=== PATIENT | male | born 1975 | race Hispanic/Latino ===

== ENCOUNTER 2019-11-16 10:40 | Outpatient (CLI) | payer OTHER ==
--- NOTE | 2019-11-16 14:29 | MRI ---
Exam: Brain MRI with and without contrast HISTORY: Pituitary adenoma COMPARISON: 02/21/2015, 03/10/2014 FINDINGS: Hemorrhage: No parenchymal hemorrhage or extra-axial hematoma Calvarium: Appropriate T1 marrow signal intensity Midline brain parenchyma: Unremarkable Cerebrum:No parenchymal mass, mass effect or midline shift. Brain volume is age-appropriate. Cortical mann-white matter differentiation is preserved. No significant T2 or FLAIR white matter hyperintensities. Ventricles: No evidence of hydrocephalus. Sinuses and mastoid air cells: Adequate aeration. No opacification of either sphenoid sinus. Diffusion: Central arterial flow is maintained. Absent restricted diffusion. Postcontrast images:No pathologic enhancement of the brain parenchyma Pituitary MRI: Redemonstration of a partially empty sella. Stable asymmetric soft tissue signal inten sity along the right floor of the sella. Findings may represent residual scar tissue versus pituitary gland. Pituitary stalk is midline. No mass effect upon the optic chiasm and prechiasmatic o ptic nerves. Flow voids involving both cavernous carotid arteries are maintained. Symmetric signal intensities of the Meckel's cave. IMPRESSION: 1. Partially empty sella, similar to the previous examination and likely representing postsurgical ch nadia. No MR evidence of a recurrent pituitary mass.
== END 2019-11-16 10:41 | disposition home or self-care (01) ==
LOC: BICMRI 10:40
PROVIDERS: ATTEND Family Medicine
DX: D35.2 Benign neoplasm of pituitary gland (principal)
CPT/HCPCS: 70553

== ENCOUNTER 2023-03-10 09:59 | Outpatient (CLI) | payer BC ==
[2023-03-10 11:12] LABS: Bilirubin Neg (Negative); Blood, Urine 25 (Negative); Glucose, Urine (Dipstick) Normal (Negative); Ketone, Urine Negative (Negative); Leukocyte 25 (Negative); Nitrite Negative (Negative); Protein, Urine (Dipstick) 15 mg/dl (Neg-Trace); Urobilinogen Normal mg/dL (Less than 2)
[2023-03-10 11:18] LABS: Clarity Clear (Clear)
[2023-03-10 11:20] LABS: Bacteria/HPF None Seen HPF (None Seen); RBC/HPF 0-3 HPF (0-3); Squamous Epithelial None Seen HPF (0-3); WBC/HPF None Seen HPF (0-3)
[2023-03-10 11:33] LABS: Hematocrit 46.1 % (38.8-50.0); Hemoglobin 16.5 g/dL (13.5-17.5); Mean Corpuscular HGB CONC 35.8 g/dL (32.0-36.0); Mean Corpuscular Hemoglobin 32.7 pg (27.0-33.0); Mean Corpuscular Volume 91.5 fl (81.2-95.1); Mean Platelet Volume 10.5 fl (7.4-10.4); Platelet Count 193 10x3/uL (150-450); RBC Distribution Width 12.1 % (11.5-14.5); Red Blood Cell (RBC) Count 5.04 10x6/uL (4.32-5.72); White Blood Cell (WBC) Count 6.5 10x3/uL (3.5-10.5)
[2023-03-10 11:44] LABS: PTT 27.6 sec (22.0-33.0); Prothrombin Time 10.3 sec (9.5-12.1)
[2023-03-10 11:47] LABS: ALT (SGPT) 23 U/L (8-55); AST (SGOT) 19 U/L (5-34); Albumin 4.4 g/dL (3.5-5.0); Alkaline Phosphatase 59 U/L (40-110); Anion Gap 15 mmol/L (10-20); BUN (Urea Nitrogen) 14 mg/dL (8.9-20.6); Bilirubin, Total 1.3 mg/dL (0.2-1.2); Calc. Creatinine Clearance 0 mL/min (70-130); Calcium 9.2 mg/dL (7.8-10.44); Carbon Dioxide 21 mmol/L (22-29); Chloride 108 mmol/L (98-107); Estimated GFR 109; Globulin 2.9 g/dL (2.4-3.5); Glucose 100 mg/dL (70-105); Protein, Total 7.3 g/dL (6.0-8.3); Sodium 140 mmol/L (136-145)
== END 2023-03-10 10:00 | disposition home or self-care (01) ==
LOC: LABBT 09:59
PROVIDERS: ATTEND Urology
DX: Z01.818 Encounter for other preprocedural examination (principal); K80.20 Calculus of gallbladder without cholecystitis without obstruction
CPT/HCPCS: 71046; 80053; 81001; 85027; 85610; 85730; 87086; 93005; 93010

== ENCOUNTER 2023-03-10 10:00 | Inpatient (IN) | payer BC ==
[2023-03-10 10:58] VITALS: BMI 38.6
[2023-03-20] MEDS ORDERED: Midazolam HCl 2 mg/2 ml Vial ONE (07:10)
[2023-03-20] MEDS ORDERED: fentaNYL 50 mcg/mL 1 mL Vial ONE (07:10)
[2023-03-20] MEDS ORDERED: NEOSTIGMINE 3 MG/3 ML SYR 3 MG/3 ML SYRINGE ONE (07:22)
[2023-03-20] MEDS ORDERED: Glycopyrrolate 0.2 MG/ML 5 ML SYRINGE ONE (07:22)
[2023-03-20] MEDS ORDERED: Rocuronium Bromide 10 MG/ML (10ML VIAL) ONE (07:22)
[2023-03-20] MEDS ORDERED: Dexamethasone 20 MG/5 ML VIAL ONE (07:22)
[2023-03-20] MEDS ORDERED: PROPOFOL 200 MG/20 ML VIAL ONE (07:22)
[2023-03-20] MEDS ORDERED: Ondansetron PF 4 MG/2 ML Vial ONE (07:22)
[2023-03-20] MEDS ORDERED: Lidocaine 1% PF 5 ML VIAL ONE (07:22)
[2023-03-20] MEDS ORDERED: ePHEDrine Sulfate 50 MG/10 ML VIAL ONE (07:22)
[2023-03-20] MEDS ORDERED: ceFOXitin 1 GM VIAL ONE ×2 (07:27→08:25)
[2023-03-20] MEDS ORDERED: Sodium Chloride 0.9% 100 ML ONE (07:27)
[2023-03-20] MEDS ORDERED: HYDROmorphone 2 MG/ML VIAL ONE (07:27)
[2023-03-20] MEDS ORDERED: EPINEPHrine 1 MG/ML VIAL ONE ×2 (07:46→11:36)
[2023-03-20] MEDS ORDERED: Lidocaine 1% (PF) 30 ML VIAL ONE (07:47)
[2023-03-20] MEDS ORDERED: cefOXitin 2 GM VIAL ONE (09:13)
[2023-03-20] MEDS ORDERED: Ondansetron HCl/PF 4 MG/2 ML Vial IVP PRN (11:12)
[2023-03-20] MEDS ORDERED: Promethazine HCl 25 MG/ML VIAL IM PRN (11:12)
[2023-03-20] MEDS ORDERED: HYDROmorphone 2 MG/ML VIAL SLOW IVP PRN (11:12)
[2023-03-20] MEDS ORDERED: PACU-Morphine 4MG/ML VIAL SLOW IVP PRN (11:12)
[2023-03-20] MEDS ORDERED: Bupivacaine 0.25% HCL 30 ML VIAL ONE (11:36)
[2023-03-20] MEDS ORDERED: Dexmedetomidine 200 MCG/2 ML VIAL ONE (11:37)
[2023-03-20] MEDS ORDERED: Hyoscyamine SL 0.125 MG TAB SL PRN (13:05)
[2023-03-20] MEDS ORDERED: Mag-Al 1200 mg/1200 mg/30 ML UDCUP PO PRN (13:05)
[2023-03-20] MEDS ORDERED: diphenhydrAMINE 25 MG CAP PO PRN (13:05)
[2023-03-20] MEDS ORDERED: hydrALAZINE 20 MG/ML VIAL SLOW IVP PRN (13:05)
[2023-03-20] MEDS ORDERED: Oxybutynin 5 MG TAB PO PRN (13:05)
[2023-03-20] MEDS ORDERED: Sodium Chloride 0.9% 1,000 ML IV SCH (13:05)
[2023-03-20] MEDS ORDERED: oxyCODONE 5 MG TAB PO PRN ×2 (13:05)
[2023-03-20 13:30] LABS: Hematocrit 43.4 % (42.0-52.0); Hemoglobin 15.4 g/dL (14.0-18.0); Mean Corpuscular HGB CONC 35.5 g/dL (32.0-36.0); Mean Corpuscular Hemoglobin 32.8 pg (27.0-31.0); Mean Corpuscular Volume 92.3 fl (78.0-98.0); Mean Platelet Volume 10.1 fL (7.4-10.4); Platelet Count 207 10x3/uL (130-400); RBC Distribution Width 12.4 % (11.5-14.5); White Blood Cell (WBC) Count 19.8 10x3/uL (4.8-10.8)
[2023-03-20 14:18] LABS: Anion Gap 14 mmol/L (10-20); BUN (Urea Nitrogen) 20 mg/dL (8.9-20.6); Calc. Creatinine Clearance 157 mL/min (70-130); Calcium 8.9 mg/dL (7.8-10.44); Carbon Dioxide 22 mmol/L (22-29); Chloride 106 mmol/L (98-107); Estimated GFR 101; Glucose 178 mg/dL (70-105); Potassium 3.2 mmol/L (3.5-5.1); Sodium 139 mmol/L (136-145)
[2023-03-20] MEDS: traMADol HCl 50 MG TAB PO SCH ×2 (15:29→20:34)
[2023-03-20] MEDS: Ketorolac Tromethamine 30 MG/ML VIAL IVP SCH ×2 (15:29→20:35)
[2023-03-20] MEDS: Acetaminophen 500 MG TAB PO SCH ×2 (15:29→20:34)
[2023-03-20] MEDS: fentaNYL 50 mcg/mL 1 mL Vial SLOW IVP PRN (16:15)
[2023-03-20] MEDS: cefOXitin 1 GM in Sodium Chloride 0.9% 100 ML IVPB SCH (17:45)
[2023-03-20] MEDS: Docusate 100 MG CAP PO SCH (20:34)
[2023-03-21] MEDS: Acetaminophen 500 MG TAB PO SCH ×4 (01:17→19:58)
[2023-03-21] MEDS: traMADol HCl 50 MG TAB PO SCH ×4 (01:17→19:59)
[2023-03-21] MEDS: Ketorolac Tromethamine 30 MG/ML VIAL IVP SCH ×4 (01:17→20:00)
[2023-03-21] MEDS: cefOXitin 1 GM in Sodium Chloride 0.9% 100 ML IVPB SCH ×2 (01:17→08:53)
[2023-03-21] MEDS: fentaNYL 50 mcg/mL 1 mL Vial SLOW IVP PRN (05:26)
[2023-03-21 06:14] LABS: #Monocytes 1.4 thou/uL (0.11-0.59); #Neutrophils 13.4 thou/uL (1.40-6.50); %Basophils 0.1 % (0.0-1.0); %Lymphocytes 9.8 % (21.0-51.0); %Monocytes 8.3 % (0.0-10.0); %Neutrophils 81.3 % (42.0-75.0); Hematocrit 40.8 % (42.0-52.0); Hemoglobin 13.9 g/dL (14.0-18.0); Mean Corpuscular HGB CONC 34.1 g/dL (32.0-36.0); Mean Corpuscular Hemoglobin 32.5 pg (27.0-31.0); Mean Platelet Volume 10.1 fL (7.4-10.4); Platelet Count 170 10x3/uL (130-400); RBC Distribution Width 12.6 % (11.5-14.5); Red Blood Cell (RBC) Count 4.28 mill/uL (4.70-6.10); White Blood Cell (WBC) Count 16.5 10x3/uL (4.8-10.8)
[2023-03-21 06:15] LABS: Mean Corpuscular Volume 95.3 fl (78.0-98.0)
[2023-03-21 07:05] LABS: Anion Gap 16 mmol/L (10-20); BUN (Urea Nitrogen) 15 mg/dL (8.9-20.6); Calc. Creatinine Clearance 180 mL/min (70-130); Calcium 8.4 mg/dL (7.8-10.44); Carbon Dioxide 21 mmol/L (22-29); Chloride 106 mmol/L (98-107); Estimated GFR 108; Glucose 107 mg/dL (70-105); Potassium 3.9 mmol/L (3.5-5.1); Sodium 139 mmol/L (136-145)
[2023-03-21] MEDS: Docusate 100 MG CAP PO SCH ×2 (08:54→19:59)
[2023-03-22] MEDS: Acetaminophen 500 MG TAB PO SCH ×3 (02:03→14:11)
[2023-03-22] MEDS: Ketorolac Tromethamine 30 MG/ML VIAL IVP SCH ×3 (02:03→14:12)
[2023-03-22] MEDS: traMADol HCl 50 MG TAB PO SCH ×3 (02:03→14:12)
[2023-03-22 06:39] LABS: #Eosinphils 0.1 thou/uL (0.0-0.7); #Monocytes 0.9 thou/uL (0.11-0.59); #Neutrophils 6.6 thou/uL (1.40-6.50); %Basophils 0.3 % (0.0-1.0); %Eosinophils 0.7 % (0.0-10.0); %Monocytes 8.8 % (0.0-10.0); %Neutrophils 62.4 % (42.0-75.0); Hematocrit 40.8 % (42.0-52.0); Hemoglobin 13.5 g/dL (14.0-18.0); Mean Corpuscular HGB CONC 33.1 g/dL (32.0-36.0); Mean Corpuscular Hemoglobin 32.5 pg (27.0-31.0); Mean Corpuscular Volume 98.1 fl (78.0-98.0); Mean Platelet Volume 10.9 fL (7.4-10.4); Platelet Count 161 10x3/uL (130-400); RBC Distribution Width 13.1 % (11.5-14.5); Red Blood Cell (RBC) Count 4.16 mill/uL (4.70-6.10); White Blood Cell (WBC) Count 10.5 10x3/uL (4.8-10.8)
[2023-03-22] MEDS: Docusate 100 MG CAP PO SCH (08:51)
[2023-03-22 11:34] VITALS: BP 127/80; TEMP 98.2
== END 2023-03-22 15:06 | disposition home or self-care (01) | DRG 708 ==
LOC: SURG A 03-20 06:12
PROVIDERS: ADMIT Urology; ATTEND Urology
PROC: 0VT04ZZ Resection of Prostate, Percutaneous Endoscopic Approach (ICD-10-PCS; principal; 2023-03-20)
PROC: 8E0W4CZ Robotic Assisted Procedure of Trunk Region, Percutaneous Endoscopic Approach (ICD-10-PCS; 2023-03-20)
PROC: 3E033XZ Introduction of Vasopressor into Peripheral Vein, Percutaneous Approach (ICD-10-PCS; 2023-03-20)
DX: C61 Malignant neoplasm of prostate (principal); N40.1 Benign prostatic hyperplasia with lower urinary tract symptoms; K80.20 Calculus of gallbladder without cholecystitis without obstruction; Z90.49 Acquired absence of other specified parts of digestive tract; Z79.899 Other long term (current) drug therapy; Z80.9 Family history of malignant neoplasm, unspecified; Z83.3 Family history of diabetes mellitus
CPT/HCPCS: 36415; 76770; 80048; 85025; 85027; 86850; 86900; 86901; 88309; C1713; C1776; C1889; J0171; J0694; J1100; J1170; J1642; J1885; J2001; J2250; J2405; J2704; J3010; J3490; J7050; S0020

== ENCOUNTER 2023-03-31 07:25 | Outpatient (CLI) | payer BC | END 2023-03-31 07:26 | disposition home or self-care (01) | LOC: RAD 07:25 | PROVIDERS: ATTEND Urology | DX: N99.81 Other intraoperative complications of genitourinary system (principal); Z96.0 Presence of urogenital implants | CPT/HCPCS: 51600; 74430 ==